=== PATIENT | female | born 1960 | race Two or more races ===

== ENCOUNTER → 2018-08-26 | Day surgery (SDC) | payer OTHER ==
[~2018-08-26] MED LIST: ATACAND4 MG PO
== END | disposition home or self-care (01) ==
LOC: CIR.AMB 05:50
DX: D05.12 Intraductal carcinoma in situ of left breast (principal); Z85.3 Personal history of malignant neoplasm of breast; N62 Hypertrophy of breast

== ENCOUNTER 2018-12-29 13:54 | Day surgery (SDC) | payer OTHER ==
[~2018-12-29 13:54] MED LIST changes: +FOLGARD TABLET1 EACH PO; +OMEGA 3 1,0001 EACH PO
== END 2018-12-29 21:10 | disposition home or self-care (01) ==
LOC: CIR.AMB 13:54
DX: S42.222A 2-part displaced fracture of surgical neck of left humerus, initial encounter for closed fracture (principal); S46.122A Laceration of muscle, fascia and tendon of long head of biceps, left arm, initial encounter

== ENCOUNTER 2020-05-29 09:00 | Day surgery (SDC) | payer OTHER | END 2020-05-29 13:20 | disposition home or self-care (01) | LOC: AMB-ENDOS 09:00 | PROVIDERS: ATTEND Colon & Rectal Surgery | DX: K63.5 Polyp of colon (principal); Z12.11 Encounter for screening for malignant neoplasm of colon; Z20.828 Contact with and (suspected) exposure to other viral communicable diseases; K64.8 Other hemorrhoids ==

== ENCOUNTER 2020-10-25 06:20 | Day surgery (SDC) | payer OTHER ==
[~2020-10-25 06:20] MED LIST changes: +B12 ACTIVE1000 MCG PO; +CARDURA8 MG PO; +FEMARA2.5 MG PO; +LIPITOR20 MG PO; +OMEGA-31000 MG PO; +PROBIOTIC1 EAC2 PO; +VITAL-D RX TAB1 EACH PO
== END 2020-10-25 13:55 | disposition home or self-care (01) ==
LOC: CIR.AMB 06:20
PROVIDERS: ATTEND Colon & Rectal Surgery
DX: K62.89 Other specified diseases of anus and rectum (principal); K56.51 Intestinal adhesions [bands], with partial obstruction; Z12.11 Encounter for screening for malignant neoplasm of colon; Z20.822 Contact with and (suspected) exposure to COVID-19